=== PATIENT | female | born 1995 | race African-American/Black ===

== ENCOUNTER 2016-04-22 07:16 | Emergency (ER) | payer MEDICAID ==
[~2016-04-22] VITALS: Ht 160 cm; Wt 65.0 kg
[~2016-04-22 07:16] MED LIST: CIPR500T4 PO; DICY1TAB26 PO; METR-1 PO; PRED20 PO; ZOFR4TAB3 PO
[2016-04-22 07:18] VITALS: BP 146/70; PULSE 108; RESP 14; TEMP 98.4; O2SAT 99
[2016-04-22] MEDS ORDERED: CIPR0.3S LEFT EAR (07:47)
[2016-04-22] MEDS ORDERED: IBUP800T23 PO (07:47)
--- NOTE | 2016-04-22 07:48 | PD ---
HPI Chief Complaint: ENT Complaint Time Seen by Provider: 07:44 Travel History International Travel<30 days: No Contact w/Intl Traveler<30days: No Traveled to known affect area: No History of Present Illness HPI 20-year-old female presents to the emergency Department with complaint of left ear pain 2 days. Denies ear drainage. Denies fever, chills, nausea, vomiting. Pain radiates to her left jaw. She denies tooth pain or sore throat. Denies recent swimming activities. Has not taken any medications or tried any treatments to review her symptoms. Allergies to sulfa. History of asthma. No other modifying factors or associated signs and symptoms. PFSH Past Medical History Asthma: Yes Respiratory: Yes (ASTHMA) ?: Not LMP: 03/28/16 Social History Alcohol Use: No Tobacco Use: No Substance Use: No Allergies-Medications (Allergen,Severity, Reaction): Coded Allergies: Sulfa (Verified Allergy, Intermediate, rash, swelling, 04/22/16) Reported Meds & Prescriptions Reported Meds & Active Scripts Active Ibuprofen 800 Mg Tab 800 Mg PO Q6HR PRN Ciprodex Otic Drops (Ciprofloxacin-Dexamethasone Otic Drops) 0.3-0.1% Susp 4 Drop LEFT EAR BID 7 Days Review of Systems Except as stated in HPI: all other systems reviewed are Neg Physical Exam Narrative GENERAL: Well-nourished, well-developed female patient, in no acute distress; afebrile, nontoxic-appearing SKIN: Warm and dry. No rash. HEAD: Atraumatic. Normocephalic. EYES: Pupils equal and round at 3 mm with brisk reaction. No scleral icterus. No injection or drainage. PERRLA. EARS: Right pinnae and external canals appear within normal limits. Left ear canal is erythemic and edematous; ear canal is open and tympanic membrane is visual; without drainage; left ear pain reproducible with tugging on the pinnae. Bilateral tympanic membranes with erythema and bulging; without dullness or perforation. ENT: Mucosa pink and moist. Pharynx with erythema; without edema or exudates. No uvular edema. No uvular, palatal, or tonsillar deviation. Airway patent. NECK: Trachea midline. No lymphadenopathy. CARDIOVASCULAR: Regular rate and rhythm. No murmur appreciated. RESPIRATORY: No accessory muscle use. Clear to auscultation. Breath sounds equal bilaterally. GASTROINTESTINAL: Abdomen soft, non-tender, nondistended. Hepatic and splenic margins not palpable. Bowel sounds are active 4 quadrants. MUSCULOSKELETAL: No obvious deformities. No clubbing. No cyanosis. No edema. NEUROLOGICAL: Awake and alert. Oriented 3. No obvious cranial nerve deficits. Motor grossly within normal limits. Normal speech. Moves all extremities. 5/5 strength to all extremities. PSYCHIATRIC: Appropriate mood and affect; insight and judgment normal. Data Data Last Documented VS Vital Signs Date Time Temp Pulse Resp B/P Pulse Ox O2 Delivery O2 Flow Rate FiO2 04/22/16 07:18 98.4 108 14 146/70 99 Orders Ibuprofen (Motrin) (04/22/16 08:00) [facility] Medical Decision Making Medical Screen Exam Complete: Yes Emergency Medical Condition: Yes Medical Record Reviewed: Yes Differential Diagnosis Otitis media, otitis externa, foreign body, tympanic membrane perforation Narrative Course 20-year-old female physical exam consistent with left otitis externa. Patient is afebrile and nontoxic-appearing. She denies fever, chills, nausea, vomiting. Heart rate recheck on physical exam is approximately 90-100 bpm. Patient is tearful secondary to left ear pain. Ibuprofen administered in the ER. Ciprodex eardrops and ibuprofen prescribed for home. Patient is medically cleared and stable for discharge. Discussed reasons to return to the emergency department. Instructed patient to follow up with primary care provider. Patient agrees with treatment plan. The patients vital signs are stable and the patient is stable for outpatient follow-up and treatment. Patient discharged home, stable and in no acute distress. Diagnosis Primary Impression: Otitis externa Qualified Code: H60.502 - Acute otitis externa of left ear, unspecified type Referrals: Primary Care Physician Patient Instructions: General Instructions, Otitis Externa (ED) Departure Forms: School Release, Return to School Date: Apr 23, 2016 Tests/Procedures Additional Instructions: Use antibiotic ear drops as prescribed Ibuprofen or Tylenol as directed and as needed to reduce pain and fever Avoid getting water in the ears Do not put anything in the ears; including Q-tips Follow-up with your primary care provider Return to the emergency department immediately with worsening of symptoms Med/Other Pt SpecificInfo: Prescription(s) given Scripts Ibuprofen 800 Mg [id number] Mg PO Q6HR PRN (PAIN) #30 TAB Ref 0 Prov:Sandy Gill 04/22/16 Ciprofloxacin-Dexamethasone Otic Drops (Ciprodex Otic Drops)0.3-0.1% Susp4 Drop LEFT EAR BID 7 Days Ref 0 Prov:Sandy Gill 04/22/16 Disposition: 01 DISCHARGE HOME Condition: Stable Sandy Gill Apr 22, 2016 07:48
[2016-04-22] MEDS ORDERED: IBUPROFEN 800 MG TAB PO ONE (08:00)
== END 2016-04-22 08:32 | disposition home or self-care (01) ==
LOC: NEPB 07:16
DX: H60.502 Unspecified acute noninfective otitis externa, left ear (principal); Z87.09 Personal history of other diseases of the respiratory system
CPT/HCPCS: 99282

== ENCOUNTER 2016-04-24 19:30 | Emergency (ER) | payer MEDICAID ==
[~2016-04-24] VITALS: Ht 160 cm; Wt 65.0 kg
[~2016-04-24 19:30] MED LIST changes: +CIPR0.3S LEFT EAR; -CIPR500T4 PO; -DICY1TAB26 PO; +IBUP800T23 PO; -METR-1 PO; -PRED20 PO; -ZOFR4TAB3 PO
[2016-04-24 19:33] VITALS: BP 120/55; PULSE 95; RESP 14; TEMP 99.4; O2SAT 98
--- NOTE | 2016-04-24 21:01 | PD ---
HPI Chief Complaint: ENT Complaint Time Seen by Provider: 20:51 Travel History International Travel<30 days: No Contact w/Intl Traveler<30days: No Traveled to known affect area: No History of Present Illness HPI 20-year-old black female returns to the ER with complaints of persistent left ear pain. She states that she was seen in the ER 2 days ago for ear pain and was diagnosed with otitis externa and given eardrops and Motrin. She's been using medication without relief. She states the pain is severe. She states that she has not been sick. She admits to using Q-tips. She states the pain does radiate into her jaw. No fever chills. No facial swelling. PFSH Past Medical History Asthma: Yes Respiratory: Yes (ASTHMA) Tetanus Vaccination: < 5 Years ?: Not LMP: NOW Past Surgical History Surgical History: No Previous Surgery Social History Alcohol Use: Yes Tobacco Use: Yes Substance Use: No Allergies-Medications (Allergen,Severity, Reaction): Coded Allergies: Sulfa (Verified Allergy, Intermediate, rash, swelling, 04/24/16) Reported Meds & Prescriptions Reported Meds & Active Scripts Active Cipro (Ciprofloxacin HCl) 500 Mg Tab 500 Mg PO BID Ibuprofen 800 Mg Tab 800 Mg PO Q6HR PRN Ciprodex Otic Drops (Ciprofloxacin-Dexamethasone Otic Drops) 0.3-0.1% Susp 4 Drop LEFT EAR BID 7 Days Review of Systems Except as stated in HPI: all other systems reviewed are Neg Physical Exam Narrative GENERAL: Well-developed, well-nourished in no acute distress. Nontoxic appearing. HEAD: Normocephalic, atraumatic. EYES: Pupils equal round and reactive. Extraocular motions intact. No scleral icterus. No injection or drainage. ENT: TMs clear without erythema. The right external auditory canals clear. The left external auditory canals is erythematous and edematous. Tender to touch. Pain in the pinna and tragus. There is a small amount of exudate in the canal. Nose: clear . Posterior pharynx is pink and moist. No tonsillar edema or exudate. Uvula midline. Airway patent. NECK: Trachea midline.Supple, nontender, moves head freely. No central bony tenderness or spasm. CARDIOVASCULAR: Regular rate and rhythm without murmurs, gallops, or rubs. RESPIRATORY: Clear to auscultation. Breath sounds equal bilaterally. No wheezes , rales, or rhonchi. GASTROINTESTINAL: Abdomen soft, non-tender, nondistended. No hepato-splenomegaly , or palpable masses. No guarding. EXTREMITIES: No clubbing, cyanosis, or edema. No joint tenderness, effusion, or edema noted. BACK: Nontender without deformity or crepitance. No flank tenderness. Data Data Last Documented VS Vital Signs Date Time Temp Pulse Resp B/P Pulse Ox O2 Delivery O2 Flow Rate FiO2 04/24/16 19:33 99.4 95 14 120/55 98 Room Air Orders Acetamin-Hydrocod 325-5 Mg ([place] 5-325 (04/24/16 21:15) Ciprofloxacin (Cipro) (04/24/16 21:15) [facility] Medical Decision Making Medical Screen Exam Complete: Yes Emergency Medical Condition: Yes Medical Record Reviewed: Yes Differential Diagnosis Differential diagnoses: Otitis media, serous otitis media, otitis externa Narrative Course Patient's given Cipro 500 mg by mouth. Lortab 5 mg by mouth. Diagnosis Primary Impression: Otitis externa Patient Instructions: General Instructions Additional Instructions: Rest. Ciprodex and Cipro oral. Continue your Motrin. Follow-up with an ear nose and throat doctor. Recheck at the clinic at school on Friday. Med/Other Pt SpecificInfo: Prescription(s) given Scripts Ciprofloxacin (Cipro)500 Mg [id number] Mg PO BID #14 TAB Prov:Talisha Otto MD 04/24/16 Disposition: 01 DISCHARGE HOME Condition: Stable Russ Bird Apr 24, 2016 21:01
[2016-04-24] MEDS ORDERED: CIPR-9 PO (21:03)
[2016-04-24] MEDS ORDERED: ACETAMINOPHEN/HYDROcodone 325 MG/5 MG TAB PO ONE (21:15)
[2016-04-24] MEDS ORDERED: CIPROFLOXACIN 500 MG TAB PO ONE (21:15)
== END 2016-04-24 21:37 | disposition home or self-care (01) ==
LOC: NEPB 19:30
DX: H60.92 Unspecified otitis externa, left ear (principal); Z72.0 Tobacco use; Z87.09 Personal history of other diseases of the respiratory system
CPT/HCPCS: 99282

== ENCOUNTER 2016-05-29 14:57 | Emergency (ER) | payer MEDICAID ==
[~2016-05-29] VITALS: Ht 160 cm; Wt 61.8 kg
[~2016-05-29 14:57] MED LIST changes: +CIPR-9 PO
[2016-05-29 14:58] VITALS: BP 117/76; PULSE 75; RESP 20; TEMP 97.9; O2SAT 99
[2016-05-29 15:30] VITALS: BP 134/63; PULSE 71; RESP 20; O2SAT 98
[2016-05-29] MEDS ORDERED: ACYC400T PO (15:56)
--- NOTE | 2016-05-29 16:40 | PD ---
HPI Chief Complaint: Complaint Time Seen by Provider: 16:38 Travel History International Travel<30 days: No Contact w/Intl Traveler<30days: No Traveled to known affect area: No History of Present Illness HPI 20-year-old female presents to the emergency department for evaluation of pelvic pain with vaginal discharge for approximately 2 days. She also reports a flare up of her genital herpes Friday, 3 days ago. Patient states her last menstrual cycle ended on Friday, for one. She denies . She does report some dysuria. She reports one sexual partner for 2 years, but with like to be treated prophylactically for STDs. She denies any fever. No chest pain shortness breath. No nausea or vomiting. She has no chronic medical problems and takes no prescribed medications. [facility] Past Medical History Asthma: Yes Diminished Hearing: No Medical other: Yes (hx herpes) Respiratory: Yes (ASTHMA) Immunizations Current: Yes Tetanus Vaccination: < 5 Years Influenza Vaccination: Yes ?: Not LMP: 05/27/2016 Past Surgical History Surgical History: No Previous Surgery Social History Alcohol Use: Yes (occ) Tobacco Use: No Substance Use: No Allergies-Medications (Allergen,Severity, Reaction): Coded Allergies: Sulfa (Verified Allergy, Intermediate, rash, swelling, 05/29/16) Reported Meds & Prescriptions Reported Meds & Active Scripts Active Flagyl (Metronidazole) 500 Mg Tab 500 Mg PO BID 7 Days Reported Acyclovir 400 Mg Tab 400 Mg PO TID Review of Systems Except as stated in HPI: all other systems reviewed are Neg Physical Exam Narrative GENERAL: Well-nourished, well-developed female patient, ambulatory. Afebrile. SKIN: Focused skin assessment warm/dry. HEAD: Normocephalic. Atraumatic. EYES: No scleral icterus. No injection or drainage. NECK: Supple, trachea midline. No JVD or lymphadenopathy. CARDIOVASCULAR: Regular rate and rhythm without murmurs, gallops, or rubs. RESPIRATORY: Breath sounds equal bilaterally. No accessory muscle use. Lungs sounds are clear to auscultation. GASTROINTESTINAL: Abdomen soft, and nondistended. Mild pelvic pain to palpation. MUSCULOSKELETAL: No cyanosis, or edema. BACK: Nontender without obvious deformity. No CVA tenderness. GENITOURINARY: Normal external genitalia without lesions or erythema. Vaginal vault without blood or drainage. Cervical os was closed without drainage. No cervical motion tenderness. Uterus nontender and nonenlarged. Bilateral adnexa nontender without masses. Exam was done with nurse, Kristal, at bedside. Data Data Last Documented VS Vital Signs Date Time Temp Pulse Resp B/P Pulse Ox O2 Delivery O2 Flow Rate FiO2 05/29/16 15:30 71 20 134/63 98 Room Air 05/29/16 14:58 97.9 Orders Gc And Chlamydia Pcr (05/29/16 16:32) Wet Prep Profile (05/29/16 16:32) Urinalysis - C+S If Indicated (05/29/16 16:32) Azithromycin Powd Pack (Zithromax Powd P (05/29/16 16:45) Ceftriaxone Inj (Rocephin Inj) (05/29/16 16:45) Lidocaine 1% Inj (50 Ml) (Xylocaine 1% I (05/29/16 16:45) Ed Urine Pregnancytest Poc (05/29/16 16:32) Labs Laboratory Tests Test 05/29/16 05/29/16 15:40 16:48 Urine Color LIGHT-YELLOW Urine Turbidity CLEAR Urine pH 7.5 Urine Specific Model 1.005 Urine Protein NEG mg/dL Urine Glucose (UA) NEG mg/dL Urine Ketones NEG mg/dL Urine Occult Blood NEG Urine Nitrite NEG Urine Bilirubin NEG Urine Urobilinogen LESS THAN 2.0 MG/DL Urine Leukocyte Esterase NEG Urine WBC LESS THAN 1 /hpf Urine Squamous Epithelial 2 /hpf Cells Microscopic Urinalysis Comment CULT NOT INDICATED Clue Cells (Wet Prep) PRESENT Vaginal Trichomonas (Wet Prep) NONE SEEN Vaginal Yeast (Wet Prep) NONE SEEN MDM Medical Decision Making Medical Screen Exam Complete: Yes Emergency Medical Condition: Yes Medical Record Reviewed: Yes Differential Diagnosis Vaginitis versus UTI versus genital herpes Narrative Course 20-year-old female presents to the emergency department for evaluation of pelvic pain with vaginal discharge for 2 days as well as a feral of her genital herpes for 4 days. UA urine test are ordered and pending. Pelvic exam will be completed. Patient would like to be prophylactically treated for chlamydia and gonorrhea. UA shows no evidence of acute infection. Wet prep is positive for clue cells. Negative for trichomonas and yeast. Urine test is negative. Patient is given Rocephin 250 mg IM and azithromycin1 gm PO. Patient will be discharged prescription for Flagyl for bacterial vaginosis. Patient will also be given a RX for valacyclovir for herpes as she has a history of this and reports reoccurring symptoms. She is to follow-up with tariff counsel. She verbalizes agreement and understanding. The patient was discharged in stable condition with instructions, including return instructions and follow up instructions. Diagnosis Primary Impression: Vaginitis Qualified Code: N76.0 - Acute vaginitis Additional Impression: Bacterial vaginosis Referrals: Attorney At [employer] call for appointment Patient Instructions: Bacterial Vaginosis (ED), General Instructions, Genital Herpes Simplex (ED) Additional Instructions: Take Flagyl as directed until gone. Do not drink alcohol while on Flagyl. Follow-up with tariff counsel. Take Valacyclovir as directed. Have sexual partner tested for STDs as well. I do not have sex until partner is tested and/or treated and for 7 days after Return to the emergency department for any acute worsening of symptoms. Med/Other Pt SpecificInfo: Prescription(s) given Scripts Valacyclovir 500 Mg [id number] Mg PO BID 3 Days Ref 0 Prov:Minerva Rosales 05/29/16 Metronidazole (Flagyl)500 Mg [id number] Mg PO BID 7 Days Ref 0 Prov:Minerva Rosales 05/29/16 Disposition: 01 DISCHARGE HOME Condition: Stable Minerva Rosales May 29, 2016 16:39
[2016-05-29] MEDS ORDERED: LIDOCAINE HCL 1% 50 ML VIAL IM ONE (16:45)
[2016-05-29] MEDS ORDERED: cefTRIAXone 250 MG VIAL IM ONE (16:45)
[2016-05-29] MEDS ORDERED: AZITHROMYCIN PWD FOR SUSP 1 GM PACKET PO ONE (16:45)
[2016-05-29 17:02] LABS: BLOOD, URINE NEG (NEG); GLUCOSE,URINE NEG (NEG); KETONE, URINE NEG (NEG); NITRITE,URINE NEG (NEG); PH, URINE 7.5 (5.0-8.5); SQUAMOUS EPITHELIAL CELL URINE 2 /hpf (0-5); URINE COLOR LIGHT-YELLOW (YELLW/STRAW)
[2016-05-29 17:04] LABS: COMMENT (UR) CULT NOT INDICATED; CULTURE IF INDICATED CULT NOT INDICATED
[2016-05-29] MEDS ORDERED: METR-1 PO (18:12)
[2016-05-29] MEDS ORDERED: VALA500T PO (18:17)
[2016-05-29 19:25] LABS: CHLAMYDIA PCR NOT DETECTED (NOT DETECT); NEISSERIA PCR NOT DETECTED (NOT DETECT)
== END 2016-05-29 19:34 | disposition home or self-care (01) ==
LOC: NEPD 14:57
DX: N76.0 Acute vaginitis (principal); A60.00 Herpesviral infection of urogenital system, unspecified; Z87.09 Personal history of other diseases of the respiratory system
CPT/HCPCS: 81001; 84703; 87210; 87491; 87591; 96372; 99284; J0696

== ENCOUNTER 2016-06-18 17:27 | Emergency (ER) | payer MEDICAID ==
[~2016-06-18 17:27] MED LIST changes: +ACYC400T PO; -CIPR-9 PO; -CIPR0.3S LEFT EAR; -IBUP800T23 PO; +METR-1 PO; +VALA500T PO
[2016-06-18 17:29] VITALS: BP 128/68; PULSE 74; RESP 15; TEMP 98.5; O2SAT 100
--- NOTE | 2016-06-18 17:33 | PD ---
HPI . right eye possible fb Chief Complaint: Eye Problems/Injury Time Seen by Provider: 17:32 Travel History International Travel<30 days: No Contact w/Intl Traveler<30days: No Traveled to known affect area: No History of Present Illness HPI 20-year-old female with no significant past medical history here with complaints of a possible right eye foreign body. Patient was popping off her acrylic nails when she says a piece of acrylic flew into her right eye. She tried to get it out and noticed a small little bump on the lower eyelid and decided to come to the emergency department because she was worried she was going to go blind. She does not have any eye pain at the moment. Her eye is visibly erythematous and that is her primary concern. She is accompanied by her friend. PFSH Past Medical History Asthma: Yes Diminished Hearing: No Respiratory: Yes (ASTHMA) Immunizations Current: Yes ?: Not LMP: 05/26/16 Social History Alcohol Use: Yes (occ) Tobacco Use: No Substance Use: No Allergies-Medications (Allergen,Severity, Reaction): Coded Allergies: Sulfa (Verified Allergy, Intermediate, rash, swelling, 06/18/16) Reported Meds & Prescriptions Reported Meds & Active Scripts Active No Active Prescriptions or Reported Medications Review of Systems General / Constitutional: No: Fever Eyes: Positive: Redness, No: Visual changes HENT: No: Headaches Cardiovascular: No: Chest Pain or Discomfort Respiratory: No: Shortness of Breath Gastrointestinal: No: Abdominal Pain Genitourinary: No: Dysuria Musculoskeletal: No: Pain Skin: No Rash Neurologic: No: Weakness Psychiatric: No: Depression Endocrine: No: Polydipsia Hematologic/Lymphatic: No: Easy Bruising Physical Exam Narrative GENERAL: AAO x 3, no acute distress, Well-nourished, well-developed patient. SKIN: Warm and dry. No visible rashes or bruising. HEAD: Normocephalic and atraumatic. EYES: No scleral icterus. No injection or drainage. EOM intact, PERRLA. Right eye examined and there is no visible foreign body. Sclera is erythematous. ENT: No nasal drainage noted. Airway patent. NECK: Supple, trachea midline. No JVD. CARDIOVASCULAR: Regular rate and rhythm without murmurs, gallops, or rubs. RESPIRATORY: Breath sounds equal bilaterally. No accessory muscle use. No rhonchi or rales. GASTROINTESTINAL: Visual inspection is normal EXTREMITIES: No cyanosis or edema. BACK: Nontender without obvious deformity. No CVA tenderness. PSYCH: AAO x 3, normal affect. Data Data Last Documented VS Vital Signs Date Time Temp Pulse Resp B/P Pulse Ox O2 Delivery O2 Flow Rate FiO2 06/18/16 17:29 98.5 74 15 128/68 100 Orders Eye Irrigation (06/18/16 17:46) MDM Medical Decision Making Medical Screen Exam Complete: Yes Emergency Medical Condition: Yes Medical Record Reviewed: Yes Differential Diagnosis Possible foreign body of the right eye, eye irritation, less likely conjunctivitis, less likely corneal abrasion Narrative Course 20-year-old female with no significant past medical history here with complaints of a possible right eye foreign body. Patient was popping off her acrylic nails when she says a piece of acrylic flew into her right eye. She tried to get it out and noticed a small little bump on the lower eyelid and decided to come to the emergency department because she was worried she was going to go blind. She does not have any eye pain at the moment. Her eye is visibly erythematous and that is her primary concern. She is accompanied by her friend. Patient seen and examined. She does have erythematous right eye. There is no visible foreign body. I staining was performed and there is no corneal abrasion. I will go ahead and flush her eye with a Ranulfo lens. Advised if she has any other issues to see an svp operations. patient felt better after eye irrigation. She was very thankful. Patient verbalized understanding of instructions, questions were answered, and thanked me for their care. I advised them if their condition worsens, please return to the nearest emergency room for further care. Procedures Procedure Narrative Fluorescein eye staining procedure: proparacaine drops instilled into the right eye Local anesthesia was accomplished. the eye was inspected for any type of obvious foreign body; none found fluorescein stain was applied to look for corneal abrasion; none found Diagnosis Primary Impression: Irritation of eye Additional Instructions: Please return to emergency department if your symptoms return or worsen. Follow up with your primary care provider. If you continue to experience eye pain or foreign body sensation over the night , please seen svp operations in the morning. If you develop any sudden loss of vision, please return to the nearest emergency department. Med/Other Pt SpecificInfo: No Change to Meds Scripts No Active Prescriptions or Reported Meds Disposition: 01 DISCHARGE HOME Condition: Stable Francy Sherman Jun 18, 2016 17:33
== END 2016-06-18 18:23 | disposition home or self-care (01) ==
LOC: NEPK 17:27
DX: H57.8 Other specified disorders of eye and adnexa (principal); W20.8XXA Other cause of strike by thrown, projected or falling object, initial encounter; Y93.89 Activity, other specified; Y92.9 Unspecified place or not applicable
CPT/HCPCS: 99283

== ENCOUNTER 2017-04-19 21:41 | Emergency (ER) | payer SELFPAY ==
[~2017-04-19] VITALS: Ht 160 cm; Wt 54.0 kg
[2017-04-19 21:42] VITALS: BP 126/79; PULSE 78; RESP 16; TEMP 98.4; O2SAT 99
[2017-04-19] MEDS ORDERED: ORPHENADRINE INJ 60 MG/2 ML AMP IM ONE (22:30)
[2017-04-19] MEDS ORDERED: KETOROLAC TROMETHAMINE 60 MG/2 ML (IM) VIAL IM ONE (22:30)
--- NOTE | 2017-04-19 23:01 | PD ---
HPI Chief Complaint: Back/ Neck Pain or Injury Time Seen by Provider: 21:50 Travel History International Travel<30 days: No Contact w/Intl Traveler<30days: No Traveled to known affect area: No History of Present Illness HPI Patient is a 21-year-old female presenting to emergency room for evaluation of bilateral lower back pain. Patient states it started a few months ago, there are no alleviating factors. Symptom onset was s gradual, symptoms are exacerbated with movement, weather changes. She denies any dysuria. She states that she was taking ibuprofen 800 mg once or twice a day which did not help her problem either. She denies any new activities, repetitive lifting, numbness or tingling in her extremities, no bladder or bowel incontinence, no saddle paresthesia. PFSH Past Medical History Medical History: Denies Significant Hx Asthma: Yes Respiratory: Yes (ASTHMA) Immunizations Current: Yes ?: Not LMP: 04/07/17 Past Surgical History Surgical History: No Previous Surgery Social History Alcohol Use: Yes (occ) Tobacco Use: No Substance Use: No Allergies-Medications (Allergen,Severity, Reaction): Coded Allergies: Sulfa (Sulfonamide Antibiotics) (Unverified Allergy, Intermediate, rash, swelling, 04/19/17) Reported Meds & Prescriptions Reported Meds & Active Scripts Active No Active Prescriptions or Reported Medications Review of Systems Except as stated in HPI: all other systems reviewed are Neg Musculoskeletal: Positive: Myalgias, Pain Physical Exam Narrative GENERAL: Well-developed, well-nourished, alert -[place] female. Presenting in no acute distress. Appears uncomfortable. SKIN: Warm and dry. HEAD: Atraumatic. Normocephalic. EYES: Pupils equal and round. No scleral icterus. No injection or drainage. ENT: No nasal bleeding or discharge. Mucous membranes pink and moist. NECK: Trachea midline. No JVD. CARDIOVASCULAR: Regular rate and rhythm. RESPIRATORY: No accessory muscle use. Clear to auscultation. Breath sounds equal bilaterally. GASTROINTESTINAL: Abdomen soft, non-tender, nondistended. Hepatic and splenic margins not palpable. MUSCULOSKELETAL: Extremities without clubbing, cyanosis, or edema. No obvious deformities. Mild tenderness to palpation to paraspinal musculature and lumbar and thoracic region. No spinal tenderness or step-off noted. NEUROLOGICAL: Awake and alert. No obvious cranial nerve deficits. Motor grossly within normal limits. Five out of 5 muscle strength in the arms and legs. Normal speech. PSYCHIATRIC: Appropriate mood and affect; insight and judgment normal. Data Data Last Documented VS Vital Signs Date Time Temp Pulse Resp B/P (MAP) Pulse Ox O2 Delivery O2 Flow Rate FiO2 04/19/17 21:42 98.4 78 16 126/79 (95) 99 Room Air Orders Orders Urinalysis - C+S If Indicated (04/19/17 22:24) Orphenadrine Inj (Norflex Inj) (04/19/17 22:30) Ketorolac Inj (Toradol Inj) (04/19/17 22:30) Ed Discharge Order (04/19/17 23:39) Labs Laboratory Tests Test 04/19/17 22:40 Urine Color YELLOW Urine Turbidity CLEAR Urine pH 6.5 Urine Specific [place] 1.023 Urine Protein TRACE mg/dL Urine Glucose (UA) NEG mg/dL Urine Ketones NEG mg/dL Urine Occult Blood NEG Urine Nitrite NEG Urine Bilirubin NEG Urine Urobilinogen LESS THAN 2.0 MG/DL Urine Leukocyte Esterase NEG Urine WBC 2 /hpf Urine Squamous Epithelial Cells 2 /hpf Urine Mucus FEW /lpf Microscopic Urinalysis Comment CULT NOT INDICATED MDM Medical Decision Making Medical Screen Exam Complete: Yes Emergency Medical Condition: Yes Interpretation(s) Laboratory Tests Test 04/19/17 22:40 Urine Color YELLOW Urine Turbidity CLEAR Urine pH 6.5 Urine Specific [place] 1.023 Urine Protein TRACE mg/dL Urine Glucose (UA) NEG mg/dL Urine Ketones NEG mg/dL Urine Occult Blood NEG Urine Nitrite NEG Urine Bilirubin NEG Urine Urobilinogen LESS THAN 2.0 MG/DL Urine Leukocyte Esterase NEG Urine WBC 2 /hpf Urine Squamous Epithelial Cells 2 /hpf Urine Mucus FEW /lpf Microscopic Urinalysis Comment CULT NOT INDICATED Vital Signs Date Time Temp Pulse Resp B/P (MAP) Pulse Ox O2 Delivery O2 Flow Rate FiO2 04/19/17 21:42 98.4 78 16 126/79 (95) 99 Room Air Differential Diagnosis Muscle spasm versus myalgia versus UTI versus versus strain versus other Narrative Course Patient is a 21-year-old female presenting with low back pain, muscle spasms. This is been ongoing for several weeks to months. There was no initiating injury or trauma. Exam appears most consistent with musculoskeletal strain. Patient reported that she did order a new mattress which will be here on Friday. Will check a UA to rule out UTI. Patient was given Norflex and Toradol. Patient was reassessed, she reported improvement in her pain, urinalysis is not consistent with a urinary tract infection. Patient was encouraged to follow-up with her primary doctor, continue range of motion exercises, apply warm heat. She is encouraged to utilize lumbar support at work. She verbalized understanding of instructions. Patient stable for discharge. Diagnosis Primary Impression: Spasm of lumbar paraspinous muscle Additional Impression: Lumbago Qualified Codes: M54.5 - Low back pain Referrals: [facility] Primary Care Physician Patient Instructions: Back Pain (ED), General Instructions, Muscle Spasm (ED) Departure Forms: Tests/Procedures, Work Release Special Instructions: Please allow patient to use lumbar support pillow while at work to help alleviate back pain Additional Instructions: Follow-up with your primary doctor Apply warm heat to the affected area, continue range of motion exercises, avoid bed rest, avoid exacerbating activities Take medications as needed and as directed Use lumbar support pillow at work Return to emergency department for any new or worsening symptoms Med/Other Pt SpecificInfo: Prescription(s) given Scripts Ibuprofen (Ibuprofen) 800 Mg Tab 800 MG PO Q8H Y for Pain/Inflammation, #60 TAB 0 Refills Prov: Berta Bradshaw 04/19/17 Orphenadrine ER 12 HR (Orphenadrine ER 12 HR) 100 Mg Tab 100 MG PO Q12HR for Muscle Spasm, #20 TAB 0 Refills Prov: Berta Bradshaw 04/19/17 Disposition: 01 DISCHARGE HOME Condition: Stable Berta Bradshaw Apr 19, 2017 23:01
[2017-04-19 23:36] LABS: BILIRUBIN, URINE NEG (NEG); BLOOD, URINE NEG (NEG); GLUCOSE,URINE NEG (NEG); KETONE, URINE NEG (NEG); MUCUS URINE FEW /lpf (OCC); NITRITE,URINE NEG (NEG); PH, URINE 6.5 (5.0-8.5); SQUAMOUS EPITHELIAL CELL URINE 2 /hpf (0-5); URINE COLOR YELLOW (YELLW/STRAW); URINE LEUKOCYTE ESTERASE NEG (NEG)
[2017-04-19] MEDS ORDERED: ORPH100T PO (23:42)
[2017-04-19] MEDS ORDERED: IBUP1TAB7 PO (23:42)
== END 2017-04-20 00:04 | disposition home or self-care (01) ==
LOC: NEPD 21:41
DX: M62.830 Muscle spasm of back (principal); M54.5 Low back pain
CPT/HCPCS: 81001; 96372; 99283; J1885; J2360

== ENCOUNTER 2017-06-18 12:41 | Emergency (ER) | payer SELFPAY ==
[~2017-06-18 12:41] MED LIST changes: -ACYC400T PO; +IBUP1TAB7 PO; -METR-1 PO; +ORPH100T PO; -VALA500T PO
[2017-06-18 12:49] VITALS: BP 115/81; PULSE 74; RESP 16; TEMP 98.2; O2SAT 100
--- NOTE | 2017-06-18 13:33 | PD ---
HPI Chief Complaint: Back/ Neck Pain or Injury Time Seen by Provider: 13:17 Travel History International Travel<30 days: No Contact w/Intl Traveler<30days: No Traveled to known affect area: No History of Present Illness HPI Patient 21-year-old female presents emergency department for several month history of low back. Patient states seems to get worse when it is cold out. Denies a history of injury. Denies any weakness of her lower extremities, she does endorse numbness and tingling of all 4 extremities. States that she has no primary care physician in town that she is a college student. States symptoms are moderate, waxing and waning, for the past few months, associated signs and symptoms and exacerbating factors as above PFSH Past Medical History Asthma: Yes Diminished Hearing: No Respiratory: Yes (ASTHMA) Immunizations Current: Yes Tetanus Vaccination: < 5 Years Influenza Vaccination: Yes ?: Not LMP: 06/13/17 Past Surgical History Surgical History: No Previous Surgery Social History Alcohol Use: Yes (occ) Tobacco Use: No Substance Use: No Allergies-Medications (Allergen,Severity, Reaction): Coded Allergies: Sulfa (Sulfonamide Antibiotics) (Unverified Allergy, Intermediate, rash, swelling, 06/18/17) Reported Meds & Prescriptions Reported Meds & Active Scripts Active Flexeril (Cyclobenzaprine HCl) 10 Mg Tab 10 Mg PO TID Review of Systems Except as stated in HPI: all other systems reviewed are Neg Physical Exam Narrative GENERAL: Well-nourished, well-developed patient. Appears to be in no distress peer SKIN: Focused skin assessment warm/dry. HEAD: Normocephalic. EYES: No scleral icterus. No injection or drainage. NECK: Supple, trachea midline. No JVD or lymphadenopathy. CARDIOVASCULAR: Regular rate and rhythm without murmurs, gallops, or rubs. RESPIRATORY: Breath sounds equal bilaterally. No accessory muscle use. GASTROINTESTINAL: Abdomen soft, non-tender, nondistended. MUSCULOSKELETAL: No cyanosis, or edema. There is no true midline CT or L-spine tenderness, there is some tenderness just lateral of the low thoracic high lumbar spine. NEUROLOGIC: Cranial nerves II through XII grossly intact and nonfocal, 5 out of 5 strength in all 4 extremities. Ambulates with an even narrow-base gait BACK: Nontender without obvious deformity. No CVA tenderness. Data Data Last Documented VS Vital Signs Date Time Temp Pulse Resp B/P (MAP) Pulse Ox O2 Delivery O2 Flow Rate FiO2 06/18/17 12:49 98.2 74 16 115/81 (92) 100 Orders Orders Spine, Lumbar - Ltd (Ap & Lat) (06/18/17 ) Spine, Thoracic-Ap/Lat/Sw(3vw) (06/18/17 ) Urinalysis - C+S If Indicated (06/18/17 13:31) Ed Urine Pregnancytest Poc (06/18/17 13:31) Cyclobenzaprine (Flexeril) (06/18/17 13:45) Labs Laboratory Tests Test 06/18/17 15:00 Urine Color YELLOW Urine Turbidity HAZY Urine pH 7.0 Urine Specific [place] 1.022 Urine Protein TRACE mg/dL Urine Glucose (UA) NEG mg/dL Urine Ketones 80 mg/dL Urine Occult Blood NEG Urine Nitrite NEG Urine Bilirubin NEG Urine Urobilinogen 2.0 MG/DL Urine Leukocyte Esterase NEG Urine RBC LESS THAN 1 /hpf Urine WBC 3 /hpf Urine Squamous Epithelial Cells 6 /hpf Urine Mucus FEW /lpf Microscopic Urinalysis Comment CULT NOT INDICATED MDM Medical Decision Making Medical Screen Exam Complete: Yes Emergency Medical Condition: Yes Differential Diagnosis Low back strain, bony abnormality needs to be considered, arthritis, degenerative disc disease, rheumatoid arthritis. Spinal cord compromise excluded clinically peer Narrative Course Patient room to the emergency department, imaging obtained at this time as the patient has been here once before for the same complaints: Last 24 hours Impressions Thoracic Spine X-Ray 06/18/17 0000 Signed Impressions: Service Date/Time: Sunday, June 18, 2017 14:10 - CONCLUSION: Unremarkable examination of the thoracic spine. Alonso Mars MD Lumbar Spine X-Ray 06/18/17 0000 Signed Impressions: Service Date/Time: Sunday, June 18, 2017 14:11 - CONCLUSION: Unremarkable limited examination of the lumbar spine. Alonso Mars MD Discussed results with the patient, UA and UPT were also negative. Discussed follow[facility]up with [facility] or her primary care physician. She stable for discharge. Discussed returning to criteria. Diagnosis Primary Impression: Back pain Referrals: [facility] Med/Other Pt SpecificInfo: Prescription(s) given Scripts Cyclobenzaprine (Flexeril) 10 Mg Tab 10 MG PO TID for Muscle Spasm, #20 TAB 0 Refills Prov: Henrique Chacko MD 06/18/17 Disposition: 01 DISCHARGE HOME Condition: Stable Henrique Chacko MD Jun 18, 2017 13:33
[2017-06-18] MEDS ORDERED: CYCLOBENZAPRINE HCL 10 MG TAB PO ONE (13:45)
--- NOTE | 2017-06-18 14:23 | RADRPT ---
EXAM DATE/TIME: 06/18/2017 14:11 [facility] COMPARISON: No previous studies available for comparison. INDICATIONS : No known injury. Pain in back for six months. MEDICAL HISTORY : None. SURGICAL HISTORY : None. ENCOUNTER: Initial ACUITY: 4 - 6 months PAIN SCORE: 4/10 LOCATION: Bilateral Middle of back FINDINGS: Two view examination was performed. There are five non-rib bearing vertebral bodies. The vertebral bodies are in normal alignment without evidence of subluxation or scoliosis. The disc spaces are paradise ntained. The pedicles are intact. Bony mineralization is normal. No fracture is identified. CONCLUSION: Unremarkable limited examination of the lumbar spine. Alonso Mars MD on June 18, 2017 at 14:20 Board Certified Radiologist. This report was verified electronically.
--- NOTE | 2017-06-18 14:24 | RADRPT ---
EXAM DATE/TIME: 06/18/2017 14:10 [facility] COMPARISON: No previous studies available for comparison. INDICATIONS : No known injury. Pain in back for six months. MEDICAL HISTORY : None. SURGICAL HISTORY : None. ENCOUNTER: Initial ACUITY: 4 - 6 months PAIN SCORE: 6/10 LOCATION: Bilateral Middle of back FINDINGS: There is normal alignment of the thoracic vertebral bodies. Vertebral body height is maintained. No evidence of fracture or subluxation. Pedicles are intact at all levels. The paravertebral reflecti ons are not thickened. CONCLUSION: Unremarkable examination of the thoracic spine. Alonso Mars MD on June 18, 2017 at 14:21 Board Certified Radiologist. This report was verified electronically.
[2017-06-18 15:46] LABS: BILIRUBIN, URINE NEG (NEG); BLOOD, URINE NEG (NEG); GLUCOSE,URINE NEG (NEG); KETONE, URINE 80 mg/dL (NEG); MUCUS URINE FEW /lpf (OCC); NITRITE,URINE NEG (NEG); SQUAMOUS EPITHELIAL CELL URINE 6 /hpf (0-5); URINE COLOR YELLOW (YELLW/STRAW); URINE LEUKOCYTE ESTERASE NEG (NEG)
[2017-06-18] MEDS ORDERED: CYCL10TA PO (16:03)
== END 2017-06-18 16:34 | disposition home or self-care (01) ==
LOC: NEPD 12:41
DX: M54.5 Low back pain (principal); R20.0 Anesthesia of skin; R20.2 Paresthesia of skin; J45.909 Unspecified asthma, uncomplicated; Z88.2 Allergy status to sulfonamides
CPT/HCPCS: 72072; 72100; 81001; 84703; 99284